=== PATIENT | female | born 1960 | race Native Hawaiian/Other Pacific Islander ===

== ENCOUNTER 2017-06-20 21:45 | Inpatient (IN) | payer OTHER ==
[~2017-06-20] VITALS: Ht 152.4 cm; Wt 127.3 kg
[~2017-06-20 21:45] MED LIST: ALBU8HFA2 INH; ALBU90OI INH; ALBU90OI6 INH; AMLO5; AMLO5 PO; ASPI325 PO; ASPI81EC PO; AZIT250 PO; Amoxicillin500 MG PO; BENZ100A PO; Benadryl25 MG PO; CEPH500 PO; CIPR250 PO; COUGH AND COLD; CYAN100; CYCL10 PO; DOXY100 PO; DOXY100T53 PO; ERYT.5TO BOTHEYES; FAMO20 PO; FOLI1 PO; FURO20 PO; Flecainide Acet50 MG PO; GABA300 PO; GLYB5 PO; GUAI120S1 PO; HCTZ PO; HYDACE10A PO; HYDACE5 PO; HYDCHL25 PO; INS70/30PN SC; INSDET100; INSLI75/25 SC; INSUASPI; INSUASPI SC; INSULANI SC; INSULANI SQ; IRON150C; LISHYD2025 PO; LISI20; LISI20 PO; LOPE2C PO; LORA10ER PO; LOVA40 PO; METF500 PO; METF500C PO; METO25ER PO; MUPI2TO TOP; NAPR500 PO; PENVK500 PO; POTA8; POTASSIUM; PRED20 PO; PROCODE120 PO; PRODEXEL PO; Prednisone20 MG PO; Pyridium200 MG PO; RXALBOI INH; RXCYCL10 PO; RXHYDACE PO; RXOXYACE PO; SITA25T2 PO; SULTRIDS PO; TRAM50 PO; Tobrex5 ML BOTHEYES; Zithromax250 MG PO; [UNRECOGNIZED DRUG - OTHER]
[2017-06-20 23:01] LABS: BASOPHILS ABSOLUTE AUTO 0.03 K/mm3 (0.00-0.23); BASOPHILS PERCENT AUTO 0 % (0-2); EOSINOPHILS ABSOLUTE AUTO 0.13 K/mm3 (0.00-0.68); EOSINOPHILS PERCENT AUTO 1 % (0-6); Hematocrit 31.5 % (33.0-51.0); Hemoglobin 10.3 g/dL (11.5-16.0); IMMATURE GRAN ABSOLUTE AUTO 0.07 K/mm3 (0.00-0.10); IMMATURE GRAN PERCENT AUTO 1 % (0-1); LYMPHOCYTES ABSOLUTE AUTO 0.61 K/mm3 (0.84-5.20); LYMPHOCYTES PERCENT AUTO 4 % (21-46); MONOCYTES ABSOLUTE AUTO 0.62 K/mm3 (0.16-1.47); MONOCYTES PERCENT AUTO 4 % (4-13); Mean Corpuscular HGB Conc 32.7 g/dL (31.5-36.5); Mean Corpuscular Volume 89 fL (80-100); Mean Platelet Volume 10.4 fL (9.1-12.4); NEUTROPHILS ABSOLUTE AUTO 13.02 K/mm3 (1.96-9.15); NEUTROPHILS PERCENT AUTO 90 % (41-73); Platelet Count 249 K/mm3 (150-400); RDW Coefficient Variation 12.5 % (11.7-14.2); RDW Standard Deviation 40.7 fL (35.1-46.3); Red Blood Cell Count 3.55 M/mm3 (3.80-5.20); White Blood Cell Count 14.48 K/mm3 (4.00-11.30)
[2017-06-20 23:20] LABS: Albumin, Blood 2.9 g/dL (3.4-5.0); Albumin/Globulin Ratio 0.7 (0.8-1.8); Bilirubin, Total 0.5 mg/dL (0.1-1.0); Bun/Creatinine Ratio 20.1 (12.0-20.0); Calcium, Blood 8.5 mg/dL (8.5-10.1); Creatinine, Blood 1.69 mg/dL (0.40-1.00); Globulin, Blood 4.3 g/dL (2.2-4.0); Potassium, Blood 4.3 mmol/L (3.5-5.5); Total Protein, Blood 7.2 g/dL (6.4-8.2); Troponin I 0.216 ng/mL (0.000-0.040)
[2017-06-20] MEDS ORDERED: Novolog100 UNIT/2 SC (23:32)
[2017-06-20] MEDS ORDERED: TOUJEO SOL300 UNIT/1 SC (23:37)
[2017-06-20] MEDS ORDERED: FISH OIL 1,0001 EAC1 PO (23:38)
[2017-06-20] MEDS ORDERED: ASCO500 PO (23:38)
[2017-06-20] MEDS ORDERED: CHOL10002 PO (23:38)
[2017-06-20] MEDS ORDERED: CYAN500 PO (23:39)
[2017-06-20 23:40] LABS: Influenza A Negative (NEGATIVE); Influenza B Negative (NEGATIVE)
[2017-06-20] MEDS ORDERED: B Complex #11 EACH PO (23:40)
[2017-06-20] MEDS ORDERED: ASPI81CH PO (23:40)
[2017-06-21 11:56] LABS: BASOPHILS ABSOLUTE AUTO 0.03 K/mm3 (0.00-0.23); BASOPHILS PERCENT AUTO 0 % (0-2); EOSINOPHILS ABSOLUTE AUTO 0.32 K/mm3 (0.00-0.68); EOSINOPHILS PERCENT AUTO 3 % (0-6); Hematocrit 29.2 % (33.0-51.0); Hemoglobin 9.6 g/dL (11.5-16.0); IMMATURE GRAN ABSOLUTE AUTO 0.04 K/mm3 (0.00-0.10); IMMATURE GRAN PERCENT AUTO 0 % (0-1); LYMPHOCYTES ABSOLUTE AUTO 0.63 K/mm3 (0.84-5.20); LYMPHOCYTES PERCENT AUTO 5 % (21-46); MONOCYTES ABSOLUTE AUTO 0.48 K/mm3 (0.16-1.47); MONOCYTES PERCENT AUTO 4 % (4-13); Mean Corpuscular HGB 28.8 pg (26.0-34.0); Mean Corpuscular HGB Conc 32.9 g/dL (31.5-36.5); Mean Corpuscular Volume 88 fL (80-100); NEUTROPHILS PERCENT AUTO 88 % (41-73); Platelet Count 233 K/mm3 (150-400); RDW Coefficient Variation 12.5 % (11.7-14.2); RDW Standard Deviation 40.2 fL (35.1-46.3); Red Blood Cell Count 3.33 M/mm3 (3.80-5.20)
[2017-06-21 12:18] LABS: Albumin, Blood 2.6 g/dL (3.4-5.0); Albumin/Globulin Ratio 0.6 (0.8-1.8); Bilirubin, Total 0.6 mg/dL (0.1-1.0); Bun/Creatinine Ratio 21.7 (12.0-20.0); Calcium, Blood 8.3 mg/dL (8.5-10.1); Creatinine, Blood 1.61 mg/dL (0.40-1.00); Globulin, Blood 4.1 g/dL (2.2-4.0); Potassium, Blood 3.6 mmol/L (3.5-5.5); Total Protein, Blood 6.7 g/dL (6.4-8.2)
[2017-06-22 05:32] LABS: BASOPHILS ABSOLUTE AUTO 0.01 K/mm3 (0.00-0.23); BASOPHILS PERCENT AUTO 0 % (0-2); EOSINOPHILS PERCENT AUTO 0 % (0-6); Hematocrit 30.2 % (33.0-51.0); IMMATURE GRAN ABSOLUTE AUTO 0.05 K/mm3 (0.00-0.10); IMMATURE GRAN PERCENT AUTO 0 % (0-1); LYMPHOCYTES ABSOLUTE AUTO 0.55 K/mm3 (0.84-5.20); LYMPHOCYTES PERCENT AUTO 5 % (21-46); MONOCYTES ABSOLUTE AUTO 0.07 K/mm3 (0.16-1.47); MONOCYTES PERCENT AUTO 1 % (4-13); Mean Corpuscular HGB Conc 33.1 g/dL (31.5-36.5); Mean Corpuscular Volume 88 fL (80-100); NEUTROPHILS PERCENT AUTO 94 % (41-73); Platelet Count 238 K/mm3 (150-400); RDW Coefficient Variation 12.6 % (11.7-14.2); RDW Standard Deviation 40.2 fL (35.1-46.3); Red Blood Cell Count 3.45 M/mm3 (3.80-5.20); White Blood Cell Count 11.78 K/mm3 (4.00-11.30)
[2017-06-22 05:50] LABS: Bun/Creatinine Ratio 27.1 (12.0-20.0); Calcium, Blood 7.7 mg/dL (8.5-10.1); Creatinine, Blood 1.66 mg/dL (0.40-1.00)
[2017-06-22 12:59] LABS: Glucose, Blood 548 mg/dL (70-99)
[2017-06-22] MEDS ORDERED: BUME2 PO (14:34)
[2017-06-22 17:39] LABS: Glucose, Blood 505 mg/dL (70-99)
[2017-06-22 21:30] LABS: Glucose, Blood 548 mg/dL (70-99)
[2017-06-23 05:53] LABS: BASOPHILS ABSOLUTE AUTO 0.02 K/mm3 (0.00-0.23); BASOPHILS PERCENT AUTO 0 % (0-2); EOSINOPHILS PERCENT AUTO 0 % (0-6); Hematocrit 32.4 % (33.0-51.0); Hemoglobin 10.7 g/dL (11.5-16.0); IMMATURE GRAN ABSOLUTE AUTO 0.15 K/mm3 (0.00-0.10); IMMATURE GRAN PERCENT AUTO 1 % (0-1); LYMPHOCYTES ABSOLUTE AUTO 1.49 K/mm3 (0.84-5.20); LYMPHOCYTES PERCENT AUTO 7 % (21-46); MONOCYTES ABSOLUTE AUTO 0.36 K/mm3 (0.16-1.47); MONOCYTES PERCENT AUTO 2 % (4-13); Mean Corpuscular HGB 28.5 pg (26.0-34.0); Mean Corpuscular Volume 86 fL (80-100); Mean Platelet Volume 10.5 fL (9.1-12.4); NEUTROPHILS ABSOLUTE AUTO 19.71 K/mm3 (1.96-9.15); NEUTROPHILS PERCENT AUTO 91 % (41-73); Platelet Count 326 K/mm3 (150-400); RDW Coefficient Variation 12.6 % (11.7-14.2); RDW Standard Deviation 39.2 fL (35.1-46.3); Red Blood Cell Count 3.76 M/mm3 (3.80-5.20); White Blood Cell Count 21.73 K/mm3 (4.00-11.30)
[2017-06-23 06:18] LABS: Bun/Creatinine Ratio 31.1 (12.0-20.0); Calcium, Blood 8.8 mg/dL (8.5-10.1); Creatinine, Blood 1.83 mg/dL (0.40-1.00); Potassium, Blood 3.4 mmol/L (3.5-5.5)
[2017-06-23 12:20] LABS: Glucose, Blood 471 mg/dL (70-99)
[2017-06-24 05:38] LABS: Hematocrit 30.5 % (33.0-51.0); Hemoglobin 10.2 g/dL (11.5-16.0); Mean Corpuscular HGB 29.1 pg (26.0-34.0); Mean Corpuscular HGB Conc 33.4 g/dL (31.5-36.5); Mean Corpuscular Volume 87 fL (80-100); Mean Platelet Volume 10.2 fL (9.1-12.4); Platelet Count 307 K/mm3 (150-400); RDW Coefficient Variation 12.8 % (11.7-14.2); RDW Standard Deviation 40.1 fL (35.1-46.3); Red Blood Cell Count 3.51 M/mm3 (3.80-5.20); White Blood Cell Count 16.03 K/mm3 (4.00-11.30)
[2017-06-24 05:52] LABS: Bun/Creatinine Ratio 32.9 (12.0-20.0); Calcium, Blood 8.7 mg/dL (8.5-10.1); Creatinine, Blood 1.64 mg/dL (0.40-1.00)
[2017-06-26] MEDS ORDERED: ALBU3IS (12:22)
[2017-06-26] MEDS ORDERED: Novolog Fl100 UNIT/1 (12:25)
[2017-06-26] MEDS ORDERED: DULERA 200 MCG/13 GM (12:27)
[2017-06-26] MEDS ORDERED: DELTASONE20 MG (12:29)
== END 2017-06-26 13:02 | disposition home health service (06) | DRG 871 ==
LOC: ER 21:45 → MEDS 06-21 00:40 → ENPENDDIS 06-26 10:00 → MEDS 06-26 13:02
PROVIDERS: Emergency Medicine; Internal Medicine
DX: A41.9 Sepsis, unspecified organism (principal); J96.01 Acute respiratory failure with hypoxia; J18.9 Pneumonia, unspecified organism; J45.901 Unspecified asthma with (acute) exacerbation; E87.1 Hypo-osmolality and hyponatremia; J44.0 Chronic obstructive pulmonary disease with (acute) lower respiratory infection; Z68.43 Body mass index [BMI] 50.0-59.9, adult; E87.6 Hypokalemia; J20.9 Acute bronchitis, unspecified; E11.65 Type 2 diabetes mellitus with hyperglycemia; E11.22 Type 2 diabetes mellitus with diabetic chronic kidney disease; I12.9 Hypertensive chronic kidney disease with stage 1 through stage 4 chronic kidney disease, or unspecified chronic kidney disease; N18.3 Chronic kidney disease, stage 3 (moderate); E66.01 Morbid (severe) obesity due to excess calories; I25.10 Atherosclerotic heart disease of native coronary artery without angina pectoris; I48.91 Unspecified atrial fibrillation; G47.33 Obstructive sleep apnea (adult) (pediatric); I48.0 Paroxysmal atrial fibrillation; E78.00 Pure hypercholesterolemia, unspecified; Z88.2 Allergy status to sulfonamides; I25.2 Old myocardial infarction; Z87.440 Personal history of urinary (tract) infections; Z79.84 Long term (current) use of oral hypoglycemic drugs; Z79.82 Long term (current) use of aspirin; Z79.899 Other long term (current) drug therapy; Z79.4 Long term (current) use of insulin
CPT/HCPCS: 36415; 71046; 80048; 80053; 82947; 83605; 83880; 84145; 84484; 85025; 85027; 87040; 87070; 87205; 87804; 93005; 93010; 94640; 94660; 94667; 94762; 99285; C1751; J1650; J1815; J1956; J2930; J7030